=== PATIENT | male | born 1950 | race Caucasian/White ===

== ENCOUNTER 2018-10-21 11:59 | Inpatient (IN) | payer MEDICARE ==
[~2018-10-21] VITALS: Ht 170.2 cm; Wt 80.8 kg
[2018-10-21] MEDS ORDERED: ASPIRIN 81 MG TAB PO STA (12:40)
[2018-10-21] MEDS ORDERED: NITROGLYCERIN 2% 1 GM OINT PKT TD STA (12:40)
[2018-10-21] MEDS ORDERED: ONDANSETRON 4 MG INJ IV STA (12:55)
[2018-10-21] MEDS ORDERED: morphine 4 MG/ML VIAL IV STA (12:55)
[2018-10-21] MEDS ORDERED: LABETALOL HCL 20MG INJ IV ONE ×2 (13:00→15:00)
[2018-10-21] MEDS ORDERED: CARB100T2 PO (13:00)
[2018-10-21] MEDS: NITROGLYCERIN (SL) 0.4 MG TAB SL PRN ×2 (13:03→13:30)
[2018-10-21] MEDS ORDERED: niCARdipine-NS 0.1MG/ML DRIP 200 ML IV STA (15:36)
[2018-10-21] MEDS ORDERED: ACETAMINOPHEN 325 MG TAB PO PRN ×2 (16:00→16:30)
[2018-10-21] MEDS ORDERED: ONDANSETRON 4 MG INJ IV PRN ×2 (16:00→16:30)
[2018-10-21] MEDS ORDERED: NACL 0.9% 3 ML SYG IV SCH (16:30)
[2018-10-21] MEDS ORDERED: SOD CHLORIDE 0.9% 1,000 ML IV SCH (16:30)
[2018-10-21] MEDS ORDERED: morphine 2 MG INJ IV PRN (16:30)
[2018-10-21] MEDS ORDERED: NITROGLYCERIN (SL) 0.4 MG TAB SL PRN (16:30)
[2018-10-21] MEDS ORDERED: HYDROCODONE/APAP (5/325) TAB PO PRN (16:30)
--- NOTE | 2018-10-21 16:34 | HP ---
Date/Time of Note Date/Time of Note DATE: 10/21/18 TIME: 16:34 Assessment/Plan VTE Prophylaxis Pharmacological prophylaxis: other Lines/Catheters IV [facility]ter Type [facility]from [facility]): Saline Lock Assessment/Plan Hospital Course Patient is a male with a remote history of intermittent hypertension who presents to [facility] for shortness of breath. Patient states that he has having this sensation of shortness of breath at night going on on and off for the past couple days has not been able to find any correlating symptoms or factors. Patient states that he has been diagnosed with hypertension and was on pills intermittently for many years but however he admits to being noncompliant and not following up with doctors on a normal basis . Patient has no idea of his medical conditions as he has not seen a doctor in quite some time. Patient currently denies chest pain, abdominal pain, nausea, vomiting, leg pain. Of note patient does complain of symptoms of frequent urination and not being able to urinate fully when actually urinating. Objective Physical exam General: Patient is laying in bed and answers questions appropriately Mentation: Patient is alert and oriented 4, Head: Normocephalic atraumatic Eyes: EOMI, pupils reactive to light Neck: Supple, nontender, midline Respiratory: Clear to auscultation bilaterally Cardiovascular: regular rate, no obvious murmurs Gastrointestinal: non-tender to palpation, bowel sounds heard. Neurological: Moves all extremities spontaneously Skin: No new skin lesions Assessment and plan Hypertensive emergency -After multiple rounds of labetalol in the ED patient's blood pressure is still over 200, Cardene drip started per ED physician, ICU placement -We will start patient on nifedipine XL, titrating up as needed -Patient likely has a history of uncontrolled blood pressure according to his story Acute kidney injury versus chronic kidney disease -Patient has symptoms of urinary retention versus enlarged prostate -Will approach this in a multifaceted fashion, will gently hydrate, low dose as not to exacerbate his blood pressure for possible volume depletion, will insert Hills catheter for obstructive causes and consult nephrology for intrinsic issues -UA pending -Patient likely had a long history of hypertensive issues which has led to likely chronic kidney disease Shortness of breath, resolving -No chest pain but may be masked by atypical chest pain -Likely secondary to above hypertensive emergency however cannot rule out ACS -Trend troponins, currently negative, statin, aspirin, lipid panel -Echocardiogram -No chest pain, monitor, -Saturating well on room air Bradycardia -Likely iatrogenic as patient received multiple rounds of labetalol in the ED -Monitor Disposition -ICU for octaviano Clemente to downgrade to telemetry if 3 hours of constant stable BP of sbp lower fredrick 160 AND dbp less than 100, both criteria need to be met. -Nephrology consult pending Result Diagram: 10/21/18 1246 10/21/18 1246 Results 24hrs Laboratory Tests Test 10/21/18 12:46 White Blood Count 6.6 Red Blood Count 5.07 Hemoglobin 14.8 Hematocrit 46.4 Mean Corpuscular Volume 91.5 Mean Corpuscular Hemoglobin 29.2 Mean Corpuscular Hemoglobin Concent 31.9 L Red Cell Distribution Width 13.2 Platelet Count 191 Mean Platelet Volume 10.5 H Immature Granulocytes % 0.200 Neutrophils % 52.8 Lymphocytes % 34.1 Monocytes % 11.1 H Eosinophils % 1.2 Basophils % 0.6 Nucleated Red Blood Cells % 0.0 Immature Granulocytes # 0.010 Neutrophils # 3.5 Lymphocytes # 2.3 Monocytes # 0.7 Eosinophils # 0.1 Basophils # 0.0 Nucleated Red Blood Cells # 0.0 Sodium Level 144 Potassium Level 4.0 Chloride Level 109 Carbon Dioxide Level 24 Anion Gap 11 Blood Urea Nitrogen 34 H Creatinine 2.81 H Est Glomerular Filtrat Rate mL/min 23 L Glucose Level 108 Calcium Level 8.8 Troponin I 0.036 HPI/ROS Admit Date/Time Admit Date/Time PMH/Family/Social Past Medical History Medications Current Medications Nitroglycerin (Nitroglycerin (Sl Tab) 0.4 Mg) 1 tab Q5M UP TO 3 DOSES PRN SL .CHEST PAIN Last administered on 10/21/18at 13:30; Admin Dose 1 TAB; Start 10/21/18 at 13:00 Nicardipine HCl 200 ml @ 50 mls/hr ONCE STAT IV Last administered on 10/21/18at 16:06; Admin Dose 50 MLS/HR; Start 10/21/18 at 15:36; Stop 10/21/18 at 19:35 Ondansetron HCl (Zofran Inj) 4 mg ER BRIDGE PRN IV NAUSEA/VOMITING; Start at 16:00; Stop 10/22/18 at 15:59 Acetaminophen (Tylenol Tab) 650 mg ER BRIDGE PRN PO .MILD PAIN 1-3 OR TEMP; Start 10/21/18 at 16:00; Stop 10/22/18 at 15:59 IV Flush (NS 3 ml) 3 ml PER PROTOCOL IV ; Start 10/21/18 at 16:30; Status UNV Ondansetron HCl (Zofran Inj) 4 mg Q6H PRN IV NAUSEA/VOMITING; Start 10/21/18 at 16:30; Status UNV Aspirin (Aspirin) 81 mg DAILY PO ; Start 10/22/18 at 09:00; Status UNV Nitroglycerin (Nitroglycerin (Sl Tab) 0.4 Mg) 1 tab Q5M PRN SL .CHEST PAIN; Start 10/21/18 at 16:30; Status UNV Acetaminophen (Tylenol Tab) 650 mg Q6H PRN PO .PAIN 1-3 OR TEMP; Start 10/21/18 at 16:30; Status UNV Acetaminophen/ Hydrocodone Bitart ([place] (5/325)) 1 tab Q6H PRN PO .PAIN 4-6; Start 10/21/18 at 16:30; Status UNV Morphine Sulfate (morphine) 2 mg Q4H PRN IV .PAIN 7-10; Start 10/21/18 at 16:30; Status UNV Atorvastatin Calcium (Lipitor) 80 mg HS PO ; Start 10/21/18 at 21:00; Status UNV Nifedipine (Procardia Xl) 30 mg BID PO ; Start 10/21/18 at 21:00; Status UNV Sodium Chloride 1,000 ml @ 50 mls/hr Q20H IV ; Start 10/21/18 at 16:30; Stop 10/22/18 at 12:29; Status UNV Hydralazine HCl (Apresoline) 10 mg Q4H PRN IV sbp >160; Start 10/21/18 at 16:30; Status UNV Tamsulosin HCl (Flomax) 0.4 mg HS PO ; Start 10/21/18 at 21:00; Status UNV Coded Allergies: tetracycline (Verified Allergy, Severe, RASH, 10/21/18) PER PT Social History Smoking Status: Light tobacco smoker Exam/Review of Systems Vital Signs Vitals Vital Signs Date Temp Pulse Resp B/P (MAP) Pulse Ox O2 O2 Flow FiO2 Time Delivery Rate 10/21/18 98.3 55 20 216/93 98 Room Air 14:45 (134) NANY RAMOS Oct 21, 2018 16:34
--- NOTE | 2018-10-21 17:38 | ERD ---
ER Documentation Chief Complaint Chief Complaint MID CHEST AND NECK PRESSURE PAIN AND SOB SINCE LAST NIGHT GOT WORSE HPI Patient is a 68-year-old male with no medical problems who presents with chest pain. No chest pain radiates to his throat. He has headache as well and feels like his ears are ringing. The symptoms have been going on for the past few days but have been worsening. He has high blood pressure and feels dizzy. He tried carbamazepine. He also has shortness of breath. Upon review of old medical records this is the patient's first visit to the emergency department. He does have a primary doctor. ROS All systems reviewed and are negative except as per history of present illness. Medications Home Meds Reported Medications Carbamazepine* (Carbamazepine*) 100 Mg Tab.chew, 100 MG PO BID, #60 TAB.CHEW 10/21/18 Allergies Allergies: Coded Allergies: tetracycline (Verified Allergy, Severe, RASH, 10/21/18) PER PT PMhx/Soc History of Surgery: No Anesthesia Reaction: No Hx Neurological Disorder: Yes (trigeminal neuralgia) Hx Respiratory Disorders: No Hx Cardiac Disorders: No Hx Psychiatric Problems: No Hx Miscellaneous Medical Probl: No Hx Alcohol Use: No Hx Substance Use: No Hx Tobacco Use: No Smoking Status: Light tobacco smoker FmHx Family History: No diabetes Physical Exam Vitals Vital Signs Date Temp Pulse Resp B/P (MAP) Pulse Ox O2 O2 Flow FiO2 Time Delivery Rate 10/21/18 69 18 169/80 100 Room Air 17:32 (109) 10/21/18 98.3 70 20 169/80 98 Room Air 17:30 (109) 10/21/18 98.3 68 20 168/75 98 Room Air 17:15 (106) 10/21/18 98.3 68 20 170/81 97 Room Air 17:00 (110) 10/21/18 98.3 55 20 216/93 98 Room Air 14:45 (134) 10/21/18 98.3 53 20 208/91 98 Room Air 14:15 (130) 10/21/18 98.3 59 20 222/102 98 Room Air 13:15 (142) 10/21/18 98.3 59 20 217/101 98 Room Air 13:00 (139) 10/21/18 98.1 75 18 269/110 100 Room Air 12:48 (162) 10/21/18 98.1 70 18 98 12:06 Physical Exam Const: No acute distress Head: Atraumatic Eyes: Normal Conjunctiva ENT: Normal External Ears, Nose and Mouth. Neck: Full range of motion. No meningismus. Resp: Clear to auscultation bilaterally Cardio: Regular rate and rhythm, no murmurs Abd: Soft, non tender, non distended. Normal bowel sounds Skin: No petechiae or rashes Back: No midline or flank tenderness Ext: No cyanosis, or edema Neur: Awake and alert Psych: Normal Mood and Affect Result Diagram: 10/21/18 1246 10/21/18 1246 Results 24 hrs Laboratory Tests Test 10/21/18 12:46 White Blood Count 6.6 10^3/ul Red Blood Count 5.07 10^6/ul Hemoglobin 14.8 g/dl Hematocrit 46.4 % Mean Corpuscular Volume 91.5 fl Mean Corpuscular Hemoglobin 29.2 pg Mean Corpuscular Hemoglobin Concent 31.9 g/dl Red Cell Distribution Width 13.2 % Platelet Count 191 10^3/UL Mean Platelet Volume 10.5 fl Immature Granulocytes % 0.200 % Neutrophils % 52.8 % Lymphocytes % 34.1 % Monocytes % 11.1 % Eosinophils % 1.2 % Basophils % 0.6 % Nucleated Red Blood Cells % 0.0 /100WBC Immature Granulocytes # 0.010 10^3/ul Neutrophils # 3.5 10^3/ul Lymphocytes # 2.3 10^3/ul Monocytes # 0.7 10^3/ul Eosinophils # 0.1 10^3/ul Basophils # 0.0 10^3/ul Nucleated Red Blood Cells # 0.0 10^3/ul Sodium Level 144 mmol/L Potassium Level 4.0 mmol/L Chloride Level 109 mmol/L Carbon Dioxide Level 24 mmol/L Anion Gap 11 Blood Urea Nitrogen 34 mg/dl Creatinine 2.81 mg/dl Est Glomerular Filtrat Rate mL/min 23 mL/min Glucose Level 108 mg/dl Calcium Level 8.8 mg/dl Troponin I 0.036 ng/ml Current Medications Medications Dose Sig/Charles Start Time Status Last (Trade) Ordered Route PRN Stop Time Admin Dose Reason Admin Aspirin 162 mg ONCE STAT 10/21/18 DC 10/21/18 (Aspirin) PO 12:40 13:03 10/21/18 12:41 1 inch ONCE STAT 10/21/18 DC 10/21/18 Nitroglycerin TD 12:40 13:03 10/21/18 12:41 (Nitroglyceri n 2% Oint) 1 tab Q5M UP TO 3 10/21/18 10/21/18 Nitroglycerin DOSES PRN 13:00 13:30 SL .CHEST (Nitroglyceri PAIN n (Sl Tab) 0.4 Mg) Labetalol 20 mg ONCE ONCE 10/21/18 DC 10/21/18 HCl IV 13:00 13:03 (Labetalol) 10/21/18 13:01 Morphine 4 mg ONCE STAT 10/21/18 DC Sulfate IV 12:55 (morphine) 10/21/18 12:56 Ondansetron 4 mg ONCE STAT 10/21/18 DC HCl (Zofran IV 12:55 Inj) 10/21/18 12:56 Labetalol 20 mg ONCE ONCE 10/21/18 DC 10/21/18 HCl IV 15:00 14:58 (Labetalol) 10/21/18 15:01 Nicardipine 200 ml @ ONCE STAT 10/21/18 10/21/18 HCl 50 mls/hr IV 15:36 16:06 10/21/18 19:35 Ondansetron 4 mg ER BRIDGE 10/21/18 HCl (Zofran PRN IV 16:00 Inj) NAUSEA/VOMITI 10/22/18 15:59 NG 650 mg ER BRIDGE 10/21/18 Acetaminophen PRN PO 16:00 (Tylenol .MILD PAIN 10/22/18 15:59 Tab) 1-3 OR TEMP IV Flush 3 ml PER 10/21/18 (NS 3 ml) PROTOCOL IV 16:30 Ondansetron 4 mg Q6H PRN 10/21/18 HCl (Zofran IV 16:30 Inj) NAUSEA/VOMITI NG Aspirin 81 mg DAILY PO 10/22/18 (Aspirin) 09:00 1 tab Q5M PRN 10/21/18 Nitroglycerin SL .CHEST 16:30 PAIN (Nitroglyceri n (Sl Tab) 0.4 Mg) 650 mg Q6H PRN 10/21/18 Acetaminophen PO .PAIN 1-3 16:30 (Tylenol OR TEMP Tab) 1 tab Q6H PRN 10/21/18 Acetaminophen PO .PAIN 4-6 16:30 / Hydrocodone Bitart ([place] (5/325)) Morphine 2 mg Q4H PRN 10/21/18 Sulfate IV .PAIN 16:30 (morphine) 7-10 80 mg HS PO 10/21/18 Atorvastatin 21:00 Calcium (Lipitor) Nifedipine 30 mg BID PO 10/21/18 (Procardia 21:00 Xl) Sodium 1,000 ml @ Q20H IV 10/21/18 Chloride 50 mls/hr 16:30 10/22/18 12:29 Hydralazine 10 mg Q4H PRN 10/21/18 HCl IV sbp >160 16:30 (Apresoline) Tamsulosin 0.4 mg HS PO 10/21/18 HCl 21:00 (Flomax) Procedures/MDM EKG #1 read by me: Rate/Rhythm: Right bundle branch block at a normal rate Intervals: Normal Impression: Right bundle branch block without ischemia EKG #2 read by me: Rate/Rhythm: Right bundle branch block at a normal rate Intervals: Normal Impression: Right bundle branch block without ischemia Chest x-ray read by radiology. Patient is a 68-year-old male who presents with chest pain and hypertensive emergency. The patient was given 2 doses of labetalol but still had a blood pressure over 200 so was started on a Cardene drip. Patient was given aspirin and nitroglycerin as well for chest pain. Initial troponin is within normal limits. The patient will be admitted to the intensive care unit to the care of Dr. Dewey from the panel team. Critical Care: Time: 35 minutes excluding all billable procedures. Treatments/Evaluations: Close monitoring and treatment of unstable vital signs, cardiorespiratory, and neurologic status, while maintaining tight balance of fluid, respiratory, and cardiac interventions. Departure Diagnosis: Primary Impression: Hypertensive emergency Additional Impression: Chest pain Chest pain type: unspecified Qualified Codes: R07.9 - Chest pain, unspec ified Condition: Critical JOANNE SCHMIDT MD Oct 21, 2018 17:38
[2018-10-21 19:22] VITALS: PULSE 65
--- NOTE | 2018-10-21 19:27 | CONS ---
DATE OF ADMISSION: 10/21/2018 DATE OF CONSULTATION: TYPE OF CONSULTATION: Nephrology. REASON FOR CONSULTATION: Acute kidney injury, possible CKD. PHYSICIAN REQUESTING CONSULT: Yared Dewey MD HISTORY OF PRESENT ILLNESS: This is a 68-year-old male with a past medical history of hypertension, poorly controlled , history of chronic kidney disease with unknown baseline creatinine, who pres ents to [facility] with shortness of breath. The patient states ove r the past several days noted increased pressure in his neck and the chest. The patient states durin g this time that he has not been compliant with his blood pressure medications which he admits to daniel ng noncompliant over the course of years. The patient as a result symptoms comes into the emergency room for evaluation. Upon arrival, the patient was noted to be hypertensive with systolic pressures of 269. In the emergency room, the patient has chest x-ray which showed no acute findings. Laborato ry data showed a BUN of 34, creatinine 2.81. In the emergency room, the patient was placed on Say e drip. In terms of patient's renal history, the patient admits to having chronic kidney disease, but does no t know his baseline creatinine. The patient also admits to being noncompliant with medications. Den ies any hemoptysis, hematemesis, hematochezia or any rashes. PAST MEDICAL HISTORY: History of CKD, history of hypertension. ALLERGIES: THE PATIENT IS ALLERGIC TO TETRACYCLINE. FAMILY HISTORY: No family history of kidney disease. PAST SURGICAL HISTORY: None. SOCIAL HISTORY: Positive for occasional tobacco use. MEDICATIONS: Have been reviewed. REVIEW OF SYSTEMS: A 14-point review of systems conducted. Pertinent positives stated in HPI, other solomon negative. PHYSICAL EXAMINATION: VITAL SIGNS: Blood pressure is 187/86, respirations 17, pulse 63, temperature 98.3. HEENT: Head is normocephalic. NECK: Supple. HEART: Regular rate. LUNGS: Show diminished breath sounds at the base. ABDOMEN: Soft, nontender to palpation without rebound or guarding. EXTREMITIES: Negative for clubbing, cyanosis. No edema. DERMATOLOGIC: No rashes. MUSCULOSKELETAL: No joint effusions. NEUROLOGIC: No focal deficits. LABORATORY DATA: Show sodium 144, BUN 24, creatinine 2.81. White count 6.5, hemoglobin 14.8, platel et count 191. ASSESSMENT AND PLAN: This is a 68-year-old male who presents with: 1. Nonoliguric acute kidney injury on top of chronic kidney disease with unknown baseline creatinine . Etiology of acute kidney injury is secondary to hemodynamics, possible tubular injury secondary to hypertensive urgency. The plan at this point is to do a full evaluation. Check UA with microanalys is. We will check urine electrolytes. We will calculate fractional excretion of urea and FENa. We will check renal ultrasound. We would continue current management. Continue Cardene drip to lower b lood pressure. However, we would be careful to avoid hemodynamic fluctuations and avoid lowering blo od pressure greater than 25% in the first 24 hours. Otherwise, continue current treatment plan, supp ortive care and renally dose all medications. 2. Mineral bone disorder. Monitor calcium and phosphorus levels. 3. Hypertensive emergency. Etiology is unclear, possibly noncompliant. Continue current blood pres sure regimen. Monitor renal function closely. 4. Chronic kidney disease. Etiology is likely secondary to underlying hypertensive nephrosclerosis. The patient has currently in acute kidney injury as stated above. We will continue current treatme nt plan. Continue disease factor modification. 5. Chest pain and shortness of breath. Etiology is likely secondary to hypertensive urgency. We wi ll, however, rule out acute coronary syndrome. Check serial troponins. Check 2D echo. Continue to monitor. 6. Bradycardia. Continue to monitor. Thank you, Dr. Dewey, for this interesting consult. It will be a pleasure to follow the patient with shonda ornelas throughout the hospital course. Dictated By: CONNOR OG DO NR/NTS Conf#: [id number] DID#: [id number] CC: JOANNE SCHMIDT MD;*EndCC*
[2018-10-21 19:36] VITALS: BP 205/98; PULSE 62; RESP 20
[2018-10-21 19:47] VITALS: Ht 170.2 cm; Wt 80.8 kg
[2018-10-21 20:00] VITALS: PULSE 66
[2018-10-21] MEDS: ATORVASTATIN 80 MG TAB PO SCH (20:21)
[2018-10-21] MEDS: NIFEdipine (XL) 30 MG TAB PO SCH (20:22)
[2018-10-21] MEDS: hydrALAzine 20 MG INJ IV PRN (20:22)
[2018-10-21] MEDS: TAMSULOSIN (SR) 0.4 MG CAP PO SCH (20:22)
[2018-10-21] MEDS ORDERED: AMLODIPINE 10 MG TAB PO ONE (22:00)
[2018-10-21] MEDS ORDERED: carBAMAZepine CHEW 100 MG CHEW PO SCH (22:00)
[2018-10-21] MEDS ORDERED: hydrALAzine 20 MG INJ IV ONE (22:00)
[2018-10-22] VITALS (10 sets, daily range): BP systolic 155–180; BP diastolic 70–86; PULSE 67–86; RESP 20
[2018-10-22] MEDS: ASPIRIN 81 MG TAB PO SCH (08:13)
[2018-10-22] MEDS: NIFEdipine (XL) 30 MG TAB PO SCH ×2 (08:13→20:18)
[2018-10-22] MEDS ORDERED: AMLODIPINE 10 MG TAB PO SCH (09:00)
--- NOTE | 2018-10-22 09:54 | PN ---
DATE: 10/22/2018 SUBJECTIVE: The patient is stable. The patient had a Hills catheter placed yesterday; however, was removed due to underlying pain. No other events noted. OBJECTIVE: VITAL SIGNS: Blood pressure is 168/82, respiratory rate 20, pulse 85, temperature 98.3. HEENT: Head is normocephalic. NECK: Supple. HEART: Regular rate. LUNGS: Show diminished breath sounds at the base. ABDOMEN: Soft, nontender to palpation without rebound or guarding. EXTREMITIES: Negative for clubbing, cyanosis, no edema. DERMATOLOGIC: No rashes. MUSCULOSKELETAL: No joint effusion. NEUROLOGIC: No change in exam. MEDICATIONS: Reviewed. LABORATORY DATA: Shows a white count 8.4, hemoglobin 13.8, platelet count is 190. Sodium 142, potas sium 4.3, BUN 36, creatinine 2.72. The patient's imaging studies were reviewed. ASSESSMENT AND PLAN: 1. Nonoliguric acute kidney injury on top of chronic kidney disease with unknown baseline creatinine . Etiology is secondary to hemodynamics, possible tubular injury due to hypertensive urgency. The p atjoey's renal ultrasound was reviewed, which showed evidence of chronic kidney disease, no evidence of obstruction. The patient's urinalysis was bland. The patient has non-nephrotic range proteinuria . Protein-creatinine ratio approximately 2.6 grams per gram of creatinine. At this point, will cont inue current treatment plan. Continue current supportive care, renally dose all meds, continue blood pressure regimen and monitor closely to avoid significant hemodynamic fluctuations. 2. Mineral bone disorder, monitor calcium and phosphorus levels. 3. Hypertension. Blood pressure levels are improving. Continue current blood pressure regimen. We would defer LISA inhibitor at this time until renal function has stabilized. 4. Coronary artery disease, likely secondary to hypertensive nephrosclerosis. Continue current leonel tment plan of acute kidney injury as stated above. Otherwise, continue disease factor modification. 5. Chest pain, likely secondary to hypertensive urgency, improving. Continue to monitor. 6. Bradycardia. Continue to monitor. Dictated By: CONNOR PRECIADO/MYKE Conf#: [id number] DID#: [id number]
[2018-10-22] MEDS: hydrALAzine 20 MG INJ IV PRN ×2 (11:12→20:24)
[2018-10-22] MEDS: carBAMAZepine CHEW 100 MG CHEW PO SCH ×2 (14:43→22:14)
--- NOTE | 2018-10-22 14:49 | PN ---
Date/Time of Note Date/Time of Note DATE: 10/22/18 TIME: 14:46 Objective Vitals Vital Signs Date Temp Pulse Resp B/P (MAP) Pulse Ox O2 O2 Flow FiO2 Time Delivery Rate 10/22/18 98.6 85 20 155/74 98 Room Air 14:41 (101) Intake and Output 10/21/18 10/21/18 10/22/18 1515:00 23:00 07:00 IntakeIntake Total 600 ml OutputOutput Total 750 ml BalanceBalance -150 ml Results Result Diagram: 10/22/18 0550 10/22/18 0550 Medications Medications Current Medications IV Flush (NS 3 ml) 3 ml PER PROTOCOL IV ; Start 10/21/18 at 16:30 Ondansetron HCl (Zofran Inj) 4 mg Q6H PRN IV NAUSEA/VOMITING; Start 10/21/18 at 16:30 Aspirin (Aspirin) 81 mg DAILY PO Last administered on 10/22/18at 08:13; Admin Dose 81 MG; Start 10/22/18 at 09:00 Nitroglycerin (Nitroglycerin (Sl Tab) 0.4 Mg) 1 tab Q5M PRN SL .CHEST PAIN; Start 10/21/18 at 16:30 Acetaminophen (Tylenol Tab) 650 mg Q6H PRN PO .PAIN 1-3 OR TEMP; Start 10/21/18 at 16:30 Acetaminophen/ Hydrocodone Bitart ([place] (5/325)) 1 tab Q6H PRN PO .PAIN 4-6; Start 10/21/18 at 16:30 Morphine Sulfate (morphine) 2 mg Q4H PRN IV .PAIN 7-10; Start 10/21/18 at 16:30 Atorvastatin Calcium (Lipitor) 80 mg HS PO Last administered on 10/21/18at 20:21; Admin Dose 80 MG; Start 10/21/18 at 21:00 Nifedipine (Procardia Xl) 30 mg BID PO Last administered on 10/22/18at 08:13; Admin Dose 30 MG; Start 10/21/18 at 21:00 Hydralazine HCl (Apresoline) 10 mg Q4H PRN IV sbp >160 Last administered on 10/22/18at 11:12; Admin Dose 10 MG; Start 10/21/18 at 16:30 Tamsulosin HCl (Flomax) 0.4 mg HS PO Last administered on 10/21/18at 20:22; Admin Dose 0.4 MG; Start 10/21/18 at 21:00 Hydralazine HCl (Apresoline) 20 mg Q8H PO Last administered on 10/22/18at 14:43; Admin Dose 20 MG; Start 10/22/18 at 06:00 Carbamazepine (Tegretol) 100 mg BID PO Last administered on 10/22/18at 14:43; Admin Dose 100 MG; Start 10/22/18 at 13:30 VTE Prophylaxis Risk score (from Ns)>0 risk: 3 SCD applied (from [facility] [place]): Yes Lines/Catheters IV Catheter Type: Hills in Place: No Assessment/Plan Hospital Course Subjective Patient feels well, cannot tolerate Hills catheter overnight, had a removed Objective Physical exam General: Patient is laying in bed and answers questions appropriately Mentation: Patient is alert and oriented 4, Head: Normocephalic atraumatic Eyes: EOMI, pupils reactive to light Neck: Supple, nontender, midline Respiratory: Clear to auscultation bilaterally Cardiovascular: regular rate, no obvious murmurs Gastrointestinal: non-tender to palpation, bowel sounds heard. Neurological: Moves all extremities spontaneously Skin: No new skin lesions Assessment and plan Hypertensive emergency -We will start patient on nifedipine XL, titrating up as needed -Nephrology added hydralazine scheduled -Patient likely has a history of uncontrolled blood pressure according to his story -Patient states that he is routinely above 200 SBP at home, okay to keep patient 's blood pressure relatively higher for now, patient's blood pressure is being lowered gradually daily. Acute kidney injury versus chronic kidney disease -Patient has symptoms of urinary retention versus enlarged prostate -UA noted -Patient likely had a long history of hypertensive issues which has led to likely chronic kidney disease -Nephrology believes this is chronic kidney disease secondary to hypertension Shortness of breath, resolving -Troponin negative x3 -Echocardiogram still pending Bradycardia, resolved -Likely iatrogenic as patient received multiple rounds of labetalol in the ED -Monitor Disposition -Monitor closely, continue to titrate blood pressure medications and ensure renal stability before discharge, possible discharge tomorrow if blood pressure is safe. NANY RAMOS Oct 22, 2018 14:49
--- NOTE | 2018-10-22 17:26 | RADRPT ---
Echocardiogram Report Patient Name: DHARA MURCIA TPatient ID: [id number] : 1950 (68y 2m)Study Date: 10/22/2018 9:17:32 AM Gender: MAccession #: [id number] Tech: Jose C Bernal [facility] Location: [address] Ref.Physician: NANY RAMOS Height(Cm): BSA: Weight(Kg): Quality: AdequateAccount #: Procedures: Echocardiographic Report: Transthoracic echocardiogram with complete 2D, M-Mode, and doppler examination. Indications: Chest Pain. Measurements: 2D/M Mode Doppler Measurement Value Normal Range Measurement Value Normal Range LVIDd 2D 5.2 [ 4.2 - 5.8 ] cm AV Peak Adebayo 1.6 [ 100.0 - 170.0 ] cm/sec LVIDs 2D 3.1 [ 2.5 - 4.0 ] cm AV Peak PG 10.0 [ 2.0 - 9.0 ] mmHg LVPWd 2D 1.3 [ 0.6 - 1.0 ] cm LVOT Peak Adebayo 1.3 [ 70.0 - 110.0 ] cm/sec IVSd 2D 1.3 [ 0.6 - 1.0 ] cm LVOT Peak PG 6.0 [ 2.0 - 6.0 ] mmHg AoR Diam 2D 2.8 [ 2.6 - 3.4 ] cm MV E Peak Adebayo 0.8 [ 60.0 - 130.0 ] cm/sec EDV 2D 127.0 [ 62.0 - 150.0 ] ml MV A Peak Adebayo 0.9 [ 100.0 - 120.0 ] cm/sec ESV 2D 37.0 [ 21.0 - 61.0 ] ml MV E/A 0.9 [ 0.8 - 1.5 ] ratio EF 2D 70.9 [ 52.0 - 72.0 ] percent MV Decel Time 264 [ 104 - 258 ] msec LA Dimen 2D 3.6 [ 3.0 - 4.0 ] cm Lat E` Adebayo 0.1 [ 10.0 - 15.0 ] cm/sec Lateral E/E` 15.0 [ 1.0 - 2.0 ] ratio MV E/A 0.9 [ 0.8 - 1.5 ] ratio RA Pressure 3.0 mmHg Findings: Left Ventricle: Normal left ventricular systolic function. Normal left ventricular cavity size. Mild concentric left ventricular hypertrophy. Ejection fraction is visually estimated at 65 %. Tissue Doppler/Mitral Doppler indices are consistent with impaired relaxation (Stage I diastolic dysfunction). Right Ventricle: Normal right ventricular size. Normal right ventricular systolic function. Left Atrium: The left atrium is normal in size. Right Atrium: The right atrium is normal in size. Mitral Valve: Mild mitral leaflet calcification. Mild mitral annular calcification. Trace mitral regurgitation. Aortic Valve: No significant aortic stenosis or insufficiency. Aortic cusps appear mildly calcified. Tricuspid Valve: Normal appearance of the tricuspid valve. Unable to obtain RVSP due to minimal presence of tricuspid regurgitation. Pericardium: Normal pericardium with no significant pericardial effusion. Aorta: Normal aortic root. IVC: Normal size and normal respiratory collapse consistent with normal right atrial pressure. Conclusions: Normal left ventricular systolic function. Normal left ventricular cavity size. Mild concentric left ventricular hypertrophy. Ejection fraction is visually estimated at 65 %. Tissue Doppler/Mitral Doppler indices are consistent with impaired relaxation (Stage I diastolic dysfunction). Electronically Signed By: Kyrie Bhatia 2018-10-22 17:25:57 PDT
[2018-10-22] MEDS: ATORVASTATIN 80 MG TAB PO SCH (20:19)
[2018-10-22] MEDS: TAMSULOSIN (SR) 0.4 MG CAP PO SCH (20:19)
[2018-10-22] MEDS: CARBAMAZEPINE 200 MG TAB PO SCH (21:00)
[2018-10-22] MEDS ORDERED: carBAMAZepine CHEW 100 MG CHEW PO ONE (21:00)
[2018-10-23] VITALS (15 sets, daily range): BP systolic 159–190; BP diastolic 75–98; PULSE 78–95; RESP 18–20
[2018-10-23] MEDS: hydrALAzine 20 MG INJ IV PRN (04:08)
[2018-10-23] MEDS: ASPIRIN 81 MG TAB PO SCH (07:43)
[2018-10-23] MEDS: NIFEdipine (XL) 30 MG TAB PO SCH (07:44)
[2018-10-23] MEDS: carBAMAZepine CHEW 100 MG CHEW PO SCH ×2 (07:47→21:26)
[2018-10-23] MEDS ORDERED: NIFEdipine (XL) 60 MG TAB PO ONE (10:00)
--- NOTE | 2018-10-23 10:45 | PN ---
Date/Time of Note Date/Time of Note DATE: 10/23/18 TIME: 10:42 Assessment/Plan VTE Prophylaxis Risk score (from Nsg)>0 risk: 2 SCD applied (from Ns): No SCD contraindicated: other Pharmacological prophylaxis: other Lines/Catheters IV [facility]from [facility]): Saline Lock Urinary Cath still in place: No Assessment/Plan Hospital Course SUBJECTIVE: The patient is stable. renal failure is slightly worse no fever, chills, new rash, hematuria or melena d/w DR Islas OBJECTIVE: HEENT: Head is normocephalic. NECK: Supple. HEART: Regular rate. LUNGS: Show diminished breath sounds at the base. ABDOMEN: Soft, nontender to palpation without rebound or guarding. EXTREMITIES: Negative for clubbing, cyanosis, no edema. DERMATOLOGIC: No rashes. MUSCULOSKELETAL: No joint effusion. NEUROLOGIC: No change in exam. MEDICATIONS: Reviewed. ASSESSMENT AND PLAN: 1. Nonoliguric acute kidney injury on top of chronic kidney disease with unknown baseline creatinine. Etiology is secondary to hemodynamics, possible tubular injury due to hypertensive urgency. The patient's renal ultrasound was reviewed, which showed evidence of chronic kidney disease, no evidence of obstruction. The patient's urinalysis was bland. The patient has non-nephrotic range proteinuria. Protein-creatinine ratio approximately 2.6 grams per gram of creatinine. At this point, will continue current treatment plan. Continue current supportive care, renally dose all meds, continue blood pressure regimen and monitor closely to avoid significant hemodynamic fluctuations. 2. Mineral bone disorder, monitor calcium and phosphorus levels. 3. Hypertension. will add cardura which will help with his urinary issues as well. We would defer LISA inhibitor at this time until renal function has stabilized. 4. Coronary artery disease, likely secondary to hypertensive nephrosclerosis. Continue current treatment plan of acute kidney injury as stated above. Otherwise, continue disease factor modification. 5. Chest pain, likely secondary to hypertensive urgency, improving. Continue to monitor. 6. Bradycardia. Continue to monitor. Result Diagram: 10/23/18 0554 10/23/18 0554 Results 24hrs Laboratory Tests Test 10/23/18 05:54 White Blood Count 9.8 Red Blood Count 4.62 L Hemoglobin 13.5 L Hematocrit 42.3 Mean Corpuscular Volume 91.6 Mean Corpuscular Hemoglobin 29.2 Mean Corpuscular Hemoglobin Concent 31.9 L Red Cell Distribution Width 13.6 Platelet Count 181 Mean Platelet Volume 11.0 H Immature Granulocytes % 0.400 Neutrophils % 61.8 Lymphocytes % 24.5 Monocytes % 12.2 H Eosinophils % 0.7 Basophils % 0.4 Nucleated Red Blood Cells % 0.0 Immature Granulocytes # 0.040 H Neutrophils # 6.1 Lymphocytes # 2.4 Monocytes # 1.2 H Eosinophils # 0.1 Basophils # 0.0 Nucleated Red Blood Cells # 0.0 Sodium Level 143 Potassium Level 4.3 Chloride Level 116 H Carbon Dioxide Level 17 L Anion Gap 10 Blood Urea Nitrogen 39 H Creatinine 3.02 H Est Glomerular Filtrat Rate mL/min 21 L Glucose Level 95 Calcium Level 8.4 Phosphorus Level 3.4 Magnesium Level 2.2 Exam/Review of Systems Exam Vitals Vital Signs Date Temp Pulse Resp B/P (MAP) Pulse Ox O2 O2 Flow FiO2 Time Delivery Rate 10/23/18 169/77 10:05 (107) 10/23/18 84 08:00 10/23/18 97.7 20 98 Room Air 07:23 Intake and Output 10/22/18 10/22/18 10/23/18 1515:00 23:00 07:00 IntakeIntake Total 360 ml 1960 ml 350 ml OutputOutput Total 300 ml 200 ml BalanceBalance 60 ml 1760 ml 350 ml Results Results 24hrs Laboratory Tests Test 10/23/18 05:54 White Blood Count 9.8 Red Blood Count 4.62 L Hemoglobin 13.5 L Hematocrit 42.3 Mean Corpuscular Volume 91.6 Mean Corpuscular Hemoglobin 29.2 Mean Corpuscular Hemoglobin Concent 31.9 L Red Cell Distribution Width 13.6 Platelet Count 181 Mean Platelet Volume 11.0 H Immature Granulocytes % 0.400 Neutrophils % 61.8 Lymphocytes % 24.5 Monocytes % 12.2 H Eosinophils % 0.7 Basophils % 0.4 Nucleated Red Blood Cells % 0.0 Immature Granulocytes # 0.040 H Neutrophils # 6.1 Lymphocytes # 2.4 Monocytes # 1.2 H Eosinophils # 0.1 Basophils # 0.0 Nucleated Red Blood Cells # 0.0 Sodium Level 143 Potassium Level 4.3 Chloride Level 116 H Carbon Dioxide Level 17 L Anion Gap 10 Blood Urea Nitrogen 39 H Creatinine 3.02 H Est Glomerular Filtrat Rate mL/min 21 L Glucose Level 95 Calcium Level 8.4 Phosphorus Level 3.4 Magnesium Level 2.2 Medications Medication Current Medications IV Flush (NS 3 ml) 3 ml PER PROTOCOL IV ; Start 10/21/18 at 16:30 Ondansetron HCl (Zofran Inj) 4 mg Q6H PRN IV NAUSEA/VOMITING; Start 10/21/18 at 16:30 Aspirin (Aspirin) 81 mg DAILY PO Last administered on 10/23/18at 07:43; Admin Dose 81 MG; Start 10/22/18 at 09:00 Nitroglycerin (Nitroglycerin (Sl Tab) 0.4 Mg) 1 tab Q5M PRN SL .CHEST PAIN; Start 10/21/18 at 16:30 Acetaminophen (Tylenol Tab) 650 mg Q6H PRN PO .PAIN 1-3 OR TEMP; Start 10/21/18 at 16:30 Acetaminophen/ Hydrocodone Bitart ([place] (5/325)) 1 tab Q6H PRN PO .PAIN 4-6; Start 10/21/18 at 16:30 Morphine Sulfate (morphine) 2 mg Q4H PRN IV .PAIN 7-10; Start 10/21/18 at 16:30 Atorvastatin Calcium (Lipitor) 80 mg HS PO Last administered on 10/22/18at 20:19; Admin Dose 80 MG; Start 10/21/18 at 21:00 Hydralazine HCl (Apresoline) 10 mg Q4H PRN IV sbp >160 Last administered on 10/22/18at 20:24; Admin Dose 10 MG; Start 10/21/18 at 16:30 Tamsulosin HCl (Flomax) 0.4 mg HS PO Last administered on 10/22/18at 20:19; Admin Dose 0.4 MG; Start 10/21/18 at 21:00 Hydralazine HCl (Apresoline) 20 mg Q8H PO Last administered on 10/23/18at 07:44; Admin Dose 20 MG; Start 10/22/18 at 06:00 Carbamazepine (Tegretol) 100 mg BID PO Last administered on 10/22/18at 22:14; Admin Dose 100 MG; Start 10/22/18 at 13:30 Carbamazepine (Tegretol) 200 mg QHS PO ; Start 10/22/18 at 21:00 Nifedipine (Procardia Xl) 90 mg DAILY PO ; Start 10/24/18 at 09:00 EMANUEL SEWELL DO Oct 23, 2018 10:45
[2018-10-23] MEDS: DOXAZOSIN 2 MG TAB PO SCH ×2 (12:18→22:08)
[2018-10-23] MEDS ORDERED: LABETALOL HCL 20MG INJ IV PRN (13:30)
--- NOTE | 2018-10-23 13:37 | PN ---
Date/Time of Note Date/Time of Note DATE: 10/23/18 TIME: 13:36 Objective Vitals Vital Signs Date Temp Pulse Resp B/P (MAP) Pulse Ox O2 O2 Flow FiO2 Time Delivery Rate 10/23/18 78 12:00 10/23/18 97.4 20 173/87 98 Room Air 11:08 (115) Intake and Output 10/22/18 10/22/18 10/23/18 1515:00 23:00 07:00 IntakeIntake Total 360 ml 1960 ml 350 ml OutputOutput Total 300 ml 200 ml BalanceBalance 60 ml 1760 ml 350 ml Results Result Diagram: 10/23/18 0554 10/23/18 0554 Medications Medications Current Medications IV Flush (NS 3 ml) 3 ml PER PROTOCOL IV ; Start 10/21/18 at 16:30 Ondansetron HCl (Zofran Inj) 4 mg Q6H PRN IV NAUSEA/VOMITING; Start 10/21/18 at 16:30 Aspirin (Aspirin) 81 mg DAILY PO Last administered on 10/23/18at 07:43; Admin Dose 81 MG; Start 10/22/18 at 09:00 Nitroglycerin (Nitroglycerin (Sl Tab) 0.4 Mg) 1 tab Q5M PRN SL .CHEST PAIN; Start 10/21/18 at 16:30 Acetaminophen (Tylenol Tab) 650 mg Q6H PRN PO .PAIN 1-3 OR TEMP; Start 10/21/18 at 16:30 Acetaminophen/ Hydrocodone Bitart ([place] (5/325)) 1 tab Q6H PRN PO .PAIN 4-6; Start 10/21/18 at 16:30 Morphine Sulfate (morphine) 2 mg Q4H PRN IV .PAIN 7-10; Start 10/21/18 at 16:30 Atorvastatin Calcium (Lipitor) 80 mg HS PO Last administered on 10/22/18at 20:19; Admin Dose 80 MG; Start 10/21/18 at 21:00 Tamsulosin HCl (Flomax) 0.4 mg HS PO Last administered on 10/22/18at 20:19; Admin Dose 0.4 MG; Start 10/21/18 at 21:00 Hydralazine HCl (Apresoline) 20 mg Q8H PO Last administered on 10/23/18at 07:44; Admin Dose 20 MG; Start 10/22/18 at 06:00 Carbamazepine (Tegretol) 100 mg BID PO Last administered on 10/22/18at 22:14; Admin Dose 100 MG; Start 10/22/18 at 13:30 Carbamazepine (Tegretol) 200 mg QHS PO ; Start 10/22/18 at 21:00 Nifedipine (Procardia Xl) 90 mg DAILY PO ; Start 10/24/18 at 09:00 Doxazosin Mesylate (Cardura) 2 mg BID PO Last administered on 10/23/18at 12:18; Admin Dose 2 MG; Start 10/23/18 at 11:00 Labetalol HCl (Labetalol) 10 mg Q4H PRN IV sbp greater than 160; Start 10/23/18 at 13:30 VTE Prophylaxis Risk score (from Ns)>0 risk: 2 SCD applied (from Ns): No SCD contraindication: other Lines/Catheters IV Catheter Type: Hills in Place: No Assessment/Plan Hospital Course Subjective Patient feels well Objective Physical exam General: Patient is laying in bed and answers questions appropriately Mentation: Patient is alert and oriented 4, Head: Normocephalic atraumatic Eyes: EOMI, pupils reactive to light Neck: Supple, nontender, midline Respiratory: Clear to auscultation bilaterally Cardiovascular: regular rate, no obvious murmurs Gastrointestinal: non-tender to palpation, bowel sounds heard. Neurological: Moves all extremities spontaneously Skin: No new skin lesions Assessment and plan Hypertensive emergency -We will start patient on nifedipine XL, titrating up as needed -Nephrology added hydralazine scheduled as well as doxazosin -Patient likely has a history of uncontrolled blood pressure according to his story -Patient states that he is routinely above 200 SBP at home, okay to keep patient's blood pressure relatively higher for now, patient's blood pressure is being lowered gradually daily. Acute kidney injury versus chronic kidney disease -Patient has symptoms of urinary retention versus enlarged prostate -UA noted -Patient likely had a long history of hypertensive issues which has led to likely chronic kidney disease -Nephrology believes this is chronic kidney disease secondary to hypertension Shortness of breath, resolving -Troponin negative x3 -Echocardiogram still pending Bradycardia, resolved -Likely iatrogenic as patient received multiple rounds of labetalol in the ED -Monitor R flank pain -CT ab/pelvis Disposition -Monitor closely, continue to titrate blood pressure medications and ensure renal stability before discharge, possible discharge tomorrow if blood pressure is safe and Cr stabilizes. NANY RAMOS Oct 23, 2018 13:37
[2018-10-23] MEDS: TAMSULOSIN (SR) 0.4 MG CAP PO SCH (21:26)
[2018-10-23] MEDS: CARBAMAZEPINE 200 MG TAB PO SCH (21:26)
[2018-10-23] MEDS: ATORVASTATIN 80 MG TAB PO SCH (21:26)
[2018-10-24] VITALS (8 sets, daily range): BP systolic 149–161; BP diastolic 73–83; PULSE 66–86; RESP 20
[2018-10-24] MEDS: ASPIRIN 81 MG TAB PO SCH (08:30)
[2018-10-24] MEDS: DOXAZOSIN 2 MG TAB PO SCH (08:31)
[2018-10-24] MEDS: carBAMAZepine CHEW 100 MG CHEW PO SCH ×2 (08:31→08:33)
[2018-10-24] MEDS ORDERED: NIFEdipine (XL) 90 MG TAB PO SCH (09:00)
[2018-10-24] MEDS ORDERED: NIFE90TA PO (11:13)
[2018-10-24] MEDS ORDERED: HYDR-3671 PO (11:13)
[2018-10-24] MEDS ORDERED: DOXA2TAB61 PO (11:13)
--- NOTE | 2018-10-24 11:15 | PDOCDIS ---
Discharge Instructions CONDITION [id number] Patient Condition: [id number] Stable FOLLOW UP/APPOINTMENTS Follow-up Plan 1. Please follow-up with Dr. Islas or Dr. Lewis, nephrology as soon as possible within 1-2 days. Continue to take blood pressure medication as prescribed 2. Please continue to take blood pressure medication as this is likely the reason for your kidney disease. 3. Please continue to monitor a small cyst on your right kidney 4. Please monitor a small fat-containing left inguinal hernia, please let your regular doctor know. NANY RAMOS Oct 24, 2018 11:15
--- NOTE | 2018-10-24 11:19 | DS ---
Date/Time of Note Date/Time of Note DATE: 10/24/18 TIME: 11:19 Discharge Summary Admission/Discharge Info Admit Date/Time Oct 21, 2018 at 15:59 Discharge Date/Time Patient Condition: Stable Hospital Course Patient is a male with a past medical history of medically noncompliant hypertension who presents to [facility] with hypertensive emergency. Patient was titrated on multiple medications for his heart to treat hypertension and also nephrology saw patient for what appears to now be chronic kidney disease secondary to hypertension. Patient was doing well however there are many difficulties with controlling his blood pressure, multiple medications had to be added. On day of discharge patient's blood pressure is significantly better, patient's normal blood pressure was routinely in the 200s per patient on day of discharge blood pressure is not necessarily less than 140 however given his normal blood pressure above 200 it is likely not a good idea to sharply drop blood pressure patient will be discharged as long as his blood pressure is less than 160 with instructions to follow-up with cable coverer and his primary care doctor as soon as possible in order to continue to titrate his blood pressure slowly over time. Patient will make an appointment with nephrology immediately and will get repeat CBC as there are signs of mild hemoglobin drop which may be attributed to some increased volume intake. Patient has no signs of GI bleed at this time and was offered additional blood tests including iron panel however patient stated that he will just follow up with a cable coverer as he is anxious to go home and does not want to wait for further workup. Patient understands the risk of not getting a repeat CBC tomorrow which includes and debility. Patient states that he will follow-up with his cable coverer tomorrow and get a CBC as soon as possible. Also patient's right flank pain had resolved which was the reason why we got CT of abdomen pelvis but did not show any signs of acute i nflammation or other acute injury. Patient has been notified of the kidney cyst. Discharge diagnosis Hypertensive emergency, resolving Chronic kidney disease, stable Shortness of breath, resolved Bradycardia, resolved Questionable BPH, on doxazosin now, follow-up with primary care provider Home Meds Active Scripts Nifedipine (Procardia Xl) 90 Mg Tab.er.24, 90 MG PO DAILY for 30 Days, #30 TAB Prov:NANY RAMOS 10/24/18 Hydralazine Hcl* (Hydralazine Hcl*) 25 Mg Tab, 25 MG PO TID for 30 Days, #90 TAB Prov:NANY RAMOS 10/24/18 Doxazosin Mesylate* (Cardura*) 2 Mg Tablet, 2 MG PO BID for 30 Days, #60 TAB Prov:NANY RAMOS 10/24/18 Reported Medications Carbamazepine* (Carbamazepine*) 100 Mg Tab.chew, 100 MG PO BID, #60 TAB.CHEW 10/21/18 Follow-up Plan 1. Please follow-up with Dr. Islas or Dr. Lewis, nephrology as soon as possible within 1-2 days. Continue to take blood pressure medication as prescribed 2. Please continue to take blood pressure medication as this is likely the reason for your kidney disease. 3. Please continue to monitor a small cyst on your right kidney 4. Please monitor a small fat-containing left inguinal hernia, please let your regular doctor know. Primary Care Provider Not On Staff Doctor Time spent on discharge: > 30 minutes Pending Labs Laboratory Tests Test 10/24/18 05:36 White Blood Count 7.2 10^3/ul (4.8-10.8) Red Blood Count 4.36 10^6/ul (4.70-6.10) Hemoglobin 12.7 g/dl (14.0-18.0) Hematocrit 41.0 % (42.0-52.0) Mean Corpuscular Volume 94.0 fl (82.0-101.0) Mean Corpuscular Hemoglobin 29.1 pg (29.0-33.0) Mean Corpuscular Hemoglobin Concent 31.0 g/dl (32.0-37.0) Red Cell Distribution Width 13.3 % (11.5-14.5) Platelet Count 163 10^3/UL (140-415) Mean Platelet Volume 11.2 fl (7.4-10.4) Immature Granulocytes % 0.400 % (0.001-0.429) Neutrophils % 53.5 % (39.0-77.0) Lymphocytes % 30.6 % (15.0-51.0) Monocytes % 13.2 % (0.0-11.0) Eosinophils % 1.9 % (0.0-7.0) Basophils % 0.4 % (0.0-2.0) Nucleated Red Blood Cells % 0.0 /100WBC (0.0-0.0) Immature Granulocytes # 0.030 10^3/ul (0.0-0.031) Neutrophils # 3.8 10^3/ul (1.6-7.5) Lymphocytes # 2.2 10^3/ul (0.8-2.9) Monocytes # 1.0 10^3/ul (0.3-0.9) Eosinophils # 0.1 10^3/ul (0.0-0.5) Basophils # 0.0 10^3/ul (0.0-0.1) Nucleated Red Blood Cells # 0.0 10^3/ul (0.0-0.0) Sodium Level 144 mmol/L (135-144) Potassium Level 4.7 mmol/L (3.5-5.1) Chloride Level 114 mmol/L (97-110) Carbon Dioxide Level 20 mmol/L (21-31) Anion Gap 10 (5-13) Blood Urea Nitrogen 43 mg/dl (7-20) Creatinine 2.92 mg/dl (0.61-1.24) Est Glomerular Filtrat Rate mL/min 22 mL/min (>60) Glucose Level 87 mg/dl (70-220) Calcium Level 8.1 mg/dl (8.4-10.2) Phosphorus Level 3.9 mg/dl (2.5-4.9) Magnesium Level 2.4 mg/dl (1.7-2.5) NANY RAMOS Oct 24, 2018 11:19
--- NOTE | 2018-10-24 11:31 | PN ---
Date/Time of Note Date/Time of Note DATE: 10/24/18 TIME: 11:30 Assessment/Plan VTE Prophylaxis Risk score (from Ns)>0 risk: 2 SCD applied (from Ns): No SCD contraindicated: other Pharmacological prophylaxis: other Lines/Catheters [facility]from [facility] Saline Lock Urinary Cath still in place: No Assessment/Plan Hospital Course SUBJECTIVE: The patient is stable. no fever, chills, new rash, hematuria or melena d/w DR Islas OBJECTIVE: HEENT: Head is normocephalic. NECK: Supple. HEART: Regular rate. LUNGS: Show diminished breath sounds at the base. ABDOMEN: Soft, nontender to palpation without rebound or guarding. EXTREMITIES: Negative for clubbing, cyanosis, no edema. DERMATOLOGIC: No rashes. MUSCULOSKELETAL: No joint effusion. NEUROLOGIC: No change in exam. MEDICATIONS: Reviewed. ASSESSMENT AND PLAN: 1. Nonoliguric acute kidney injury on top of chronic kidney disease with unknown baseline creatinine. Etiology is secondary to hemodynamics, possible tubular injury due to hypertensive urgency. The patient's renal ultrasound was reviewed, which showed evidence of chronic kidney disease, no evidence of obstruction. will need acei or arb for HTN, ckd and proteinuria which can be started as outpatient 2. Mineral bone disorder, monitor calcium and phosphorus levels. 3. Hypertension. will continue cardura which will help with his urinary issues as well. will increase hydralazine 4. Coronary artery disease, likely secondary to hypertensive nephrosclerosis. Continue current treatment plan of acute kidney injury as stated above. Otherwise, continue disease factor modification. 5. Chest pain, likely secondary to hypertensive urgency, improving. Continue to monitor. 6. Bradycardia. Continue to monitor. Result Diagram: 10/24/18 0536 10/24/18 0536 Results 24hrs Laboratory Tests Test 10/24/18 05:36 White Blood Count 7.2 # Red Blood Count 4.36 L Hemoglobin 12.7 L Hematocrit 41.0 L Mean Corpuscular Volume 94.0 Mean Corpuscular Hemoglobin 29.1 Mean Corpuscular Hemoglobin Concent 31.0 L Red Cell Distribution Width 13.3 Platelet Count 163 Mean Platelet Volume 11.2 H Immature Granulocytes % 0.400 Neutrophils % 53.5 Lymphocytes % 30.6 Monocytes % 13.2 H Eosinophils % 1.9 Basophils % 0.4 Nucleated Red Blood Cells % 0.0 Immature Granulocytes # 0.030 Neutrophils # 3.8 Lymphocytes # 2.2 Monocytes # 1.0 H Eosinophils # 0.1 Basophils # 0.0 Nucleated Red Blood Cells # 0.0 Sodium Level 144 Potassium Level 4.7 Chloride Level 114 H Carbon Dioxide Level 20 L Anion Gap 10 Blood Urea Nitrogen 43 H Creatinine 2.92 H Est Glomerular Filtrat Rate mL/min 22 L Glucose Level 87 Calcium Level 8.1 L Phosphorus Level 3.9 Magnesium Level 2.4 Exam/Review of Systems Exam Vitals Vital Signs Date Temp Pulse Resp B/P (MAP) Pulse Ox O2 O2 Flow FiO2 Time Delivery Rate 10/24/18 72 08:23 10/24/18 98.0 20 149/77 99 07:49 (101) 10/23/18 Room Air 20:29 Intake and Output 10/23/18 10/23/18 10/24/18 1515:00 23:00 07:00 IntakeIntake Total 1440 ml 500 ml OutputOutput Total 2000 ml BalanceBalance -560 ml 500 ml Results Results 24hrs Laboratory Tests Test 10/24/18 05:36 White Blood Count 7.2 # Red Blood Count 4.36 L Hemoglobin 12.7 L Hematocrit 41.0 L Mean Corpuscular Volume 94.0 Mean Corpuscular Hemoglobin 29.1 Mean Corpuscular Hemoglobin Concent 31.0 L Red Cell Distribution Width 13.3 Platelet Count 163 Mean Platelet Volume 11.2 H Immature Granulocytes % 0.400 Neutrophils % 53.5 Lymphocytes % 30.6 Monocytes % 13.2 H Eosinophils % 1.9 Basophils % 0.4 Nucleated Red Blood Cells % 0.0 Immature Granulocytes # 0.030 Neutrophils # 3.8 Lymphocytes # 2.2 Monocytes # 1.0 H Eosinophils # 0.1 Basophils # 0.0 Nucleated Red Blood Cells # 0.0 Sodium Level 144 Potassium Level 4.7 Chloride Level 114 H Carbon Dioxide Level 20 L Anion Gap 10 Blood Urea Nitrogen 43 H Creatinine 2.92 H Est Glomerular Filtrat Rate mL/min 22 L Glucose Level 87 Calcium Level 8.1 L Phosphorus Level 3.9 Magnesium Level 2.4 Medications Medication Current Medications IV Flush (NS 3 ml) 3 ml PER PROTOCOL IV ; Start 10/21/18 at 16:30 Ondansetron HCl (Zofran Inj) 4 mg Q6H PRN IV NAUSEA/VOMITING; Start 10/21/18 at 16:30 Nitroglycerin (Nitroglycerin (Sl Tab) 0.4 Mg) 1 tab Q5M PRN SL .CHEST PAIN; Start 10/21/18 at 16:30 Acetaminophen (Tylenol Tab) 650 mg Q6H PRN PO .PAIN 1-3 OR TEMP; Start 10/21/18 at 16:30 Acetaminophen/ Hydrocodone Bitart ([place] (5/325)) 1 tab Q6H PRN PO .PAIN 4-6; Start 10/21/18 at 16:30 Morphine Sulfate (morphine) 2 mg Q4H PRN IV .PAIN 7-10; Start 10/21/18 at 16:30 Tamsulosin HCl (Flomax) 0.4 mg HS PO Last administered on 10/23/18 21:26; Admin Dose 0.4 MG; Start 10/21/18 at 21:00 Carbamazepine (Tegretol) 200 mg QHS PO Last administered on 10/23/18 21:26; Admin Dose 200 MG; Start 10/22/18 at 21:00 Nifedipine (Procardia Xl) 90 mg DAILY PO Last administered on 10/24/18 08:30; Admin Dose 90 MG; Start 10/24/18 at 09:00 Doxazosin Mesylate (Cardura) 2 mg BID PO Last administered on 10/24/18 08:31; Admin Dose 2 MG; Start 10/23/18 at 11:00 Labetalol HCl (Labetalol) 10 mg Q4H PRN IV sbp greater than 160; Start 10/23/18 at 13:30 Clonidine (Catapres) 0.1 mg Q6H PRN PO sbp >160 Last administered on 10/23/18 14:59; Admin Dose 0.1 MG; Start 10/23/18 at 14:00 Hydralazine HCl (Apresoline) 25 mg Q8 PO Last administered on 10/24/18 05:55; Admin Dose 25 MG; Start 10/23/18 at 22:00 EMANUEL SEWELL DO Oct 24, 2018 11:31
== END 2018-10-24 13:49 | disposition home or self-care (01) | DRG 305 ==
LOC: E/R 11:59 → TEL 15:59
PROVIDERS: ADMIT Internal Medicine; ATTEND Internal Medicine
DX: I16.1 Hypertensive emergency (principal); N17.9 Acute kidney failure, unspecified; R00.1 Bradycardia, unspecified; Z91.14 Patient's other noncompliance with medication regimen; N18.9 Chronic kidney disease, unspecified; I12.9 Hypertensive chronic kidney disease with stage 1 through stage 4 chronic kidney disease, or unspecified chronic kidney disease; I16.0 Hypertensive urgency; I25.10 Atherosclerotic heart disease of native coronary artery without angina pectoris; N40.0 Benign prostatic hyperplasia without lower urinary tract symptoms
CPT/HCPCS: 36415; 71045; 74176; 76775; 80048; 80053; 80061; 80307; 81001; 81003; 82043; 82550; 82553; 83036; 83735; 84100; 84155; 84300; 84443; 84484; 85014; 85018; 85025; 93005; 93306; 96374; J0360; J2270; J2405; J7030